=== PATIENT | female | born 1990 | race Caucasian/White ===

== ENCOUNTER 2017-09-30 14:19 | Emergency (ER) | payer BC ==
[2017-09-30] MEDS ORDERED: DEPO-PROVER150 MG/M2 (14:44)
[2017-09-30] MEDS ORDERED: DEPAKOTE ER 25250 MG PO (14:44)
[2017-09-30] MEDS ORDERED: TOPAMAX50 M1 (14:44)
[2017-09-30] MEDS ORDERED: PROBIOTIC1 EAC1 (14:45)
[2017-09-30] MEDS ORDERED: CYMBALTA20 MG (14:45)
[2017-09-30] MEDS ORDERED: MELOXICAM15 MG (14:45)
[2017-09-30 15:48] LABS: BASO # 0.1 (0.02-0.10); EOS # 0.1 (0.04-0.40); EOS % 1.2 % (1.0-5.0); HEMATOCRIT 40.8 % (37.0-47.0); HEMOGLOBIN 14.2 g/dL (12.5-16.0); LYMPH# 2.3 (1.50-4.00); MEAN CELL VOLUME 90 fl (78-100); MEAN CORPUSCULAR HEMOGLOBIN 31 pg (27-31); MEAN CORPUSCULAR HGB CONC 35 g/dL (33-37); MEAN PLATELET VOLUME 9.9 fl (7.4-10.4); MONO # 0.8 (0.20-0.80); NEU # 3.4 (1.40-6.50); PLATELET COUNT 275 K/mm3 (130-400); RED BLOOD COUNT 4.52 M/mm3 (4.10-5.30); RED CELL DISTRIBUTION WIDTH 11.7 % (11.5-14.5); WHITE BLOOD COUNT 6.6 K/mm3 (4.8-10.8)
[2017-09-30 16:08] LABS: PH-URINE 6.5 (5.0 - 8.0); URINE APPEARANCE HAZY; URINE BILIRUBIN NEGATIVE (NEGATIVE); URINE BLOOD 50 ery/uL (NEGATIVE); URINE COLOR YELLOW; URINE GLUCOSE NEGATIVE (NEGATIVE); URINE KETONE NEGATIVE (NEGATIVE); URINE LEUKOCYTE ESTERASE 1+ (NEGATIVE); URINE MUCUS PRESENT (NOT PRESENT); URINE NITRATE NEGATIVE (NEGATIVE); URINE PROTEIN(semi-quant) TRACE mg/dL (NEGATIVE); URINE UROBILINOGEN NORMAL (NORMAL)
[2017-09-30] MEDS ORDERED: NORCO 325 MG-51 TA1 PO (18:14)
[2017-09-30] MEDS ORDERED: MACROBID 100 M100 MG PO (18:17)
[2017-09-30 18:28] VITALS: BP 120/65
== END 2017-09-30 18:36 | disposition home or self-care (01) ==
LOC: ED 14:19
PROVIDERS: Family Medicine
DX: N93.8 Other specified abnormal uterine and vaginal bleeding (principal); N39.0 Urinary tract infection, site not specified; R10.2 Pelvic and perineal pain; M79.7 Fibromyalgia; Z87.42 Personal history of other diseases of the female genital tract; G40.909 Epilepsy, unspecified, not intractable, without status epilepticus
CPT/HCPCS: J1885

== ENCOUNTER 2019-02-13 21:17 | Emergency (ER) | payer BC ==
[~2019-02-13] VITALS: Ht 162.6 cm; Wt 52.3 kg
[~2019-02-13 21:17] MED LIST: CYMBALTA20 MG; DEPAKOTE ER 25250 MG PO; DEPO-PROVER150 MG/M2; MACROBID 100 M100 MG PO; MELOXICAM15 MG; NORCO 325 MG-51 TA1 PO; PROBIOTIC1 EAC1; TOPAMAX50 M1
[2019-02-13 21:50] LABS: BASO # 0.1 (0.02-0.10); EOS # 0.2 (0.04-0.40); EOS % 3.5 % (1.0-5.0); HEMATOCRIT 37.8 % (37.0-47.0); HEMOGLOBIN 12.5 g/dL (12.5-16.0); LYMPH# 2.4 (1.50-4.00); MEAN CELL VOLUME 92 fl (78-100); MEAN CORPUSCULAR HEMOGLOBIN 31 pg (27-31); MEAN CORPUSCULAR HGB CONC 33 g/dL (33-37); MEAN PLATELET VOLUME 9.7 fl (7.4-10.4); MONO # 0.5 (0.20-0.80); PLATELET COUNT 231 K/mm3 (130-400); RED CELL DISTRIBUTION WIDTH 12.5 % (11.5-14.5); WHITE BLOOD COUNT 5.1 K/mm3 (4.8-10.8)
[2019-02-13 22:09] LABS: ALBUMIN 3.7 g/dL (3.5-5.0); CALCIUM 9.2 mg/dL (8.4-10.2); POTASSIUM 3.2 mmol/L (3.5-5.1); TOTAL BILIRUBIN 0.3 mg/dL (0.2-1.2)
[2019-02-13] MEDS ORDERED: ZONISAMIDE100 MG PO (22:09)
[2019-02-13] MEDS ORDERED: KEPPRA 500MG500 MG PO (22:10)
[2019-02-13] MEDS ORDERED: KLONOPIN 1MG1 MG PO (22:11)
[2019-02-13] MEDS ORDERED: ZOVIRAX400 M1 PO (22:12)
[2019-02-13 22:59] LABS: ACETAMINOPHEN 2 ug/mL
[2019-02-14 01:05] VITALS: BP 92/56
== END 2019-02-14 01:05 | disposition short-term general hospital (02) ==
LOC: ED 21:17
PROVIDERS: Nurse Practitioner Family
DX: G40.209 Localization-related (focal) (partial) symptomatic epilepsy and epileptic syndromes with complex partial seizures, not intractable, without status epilepticus (principal); E87.6 Hypokalemia; G43.909 Migraine, unspecified, not intractable, without status migrainosus; F41.9 Anxiety disorder, unspecified; M79.7 Fibromyalgia; F17.210 Nicotine dependence, cigarettes, uncomplicated; Z87.39 Personal history of other diseases of the musculoskeletal system and connective tissue
CPT/HCPCS: J1885; J2060; J3480; J7030

== ENCOUNTER 2020-01-01 13:30 | Outpatient (RCR) | payer MEDICAID ==
[~2020-01-01 13:30] MED LIST changes: +KEPPRA 500MG500 MG PO; +KLONOPIN 1MG1 MG PO; +ZONISAMIDE100 MG PO; +ZOVIRAX400 M1 PO
== END 2020-01-01 14:00 | disposition still patient (30) ==
LOC: PT 13:30
DX: M75.42 Impingement syndrome of left shoulder (principal); Z98.890 Other specified postprocedural states

== ENCOUNTER 2020-10-14 01:07 | Emergency (ER) | payer MEDICAID ==
[2020-10-14] MEDS ORDERED: ULTRAM50 M1 PO (01:20)
[2020-10-14] MEDS ORDERED: PRENATA1 CTB PO (01:20)
[2020-10-14] MEDS ORDERED: AMBIEN10 MG PO (01:20)
[2020-10-14 02:03] LABS: EOS # 0.1 (0.04-0.40); HEMATOCRIT 35.2 % (37.0-47.0); HEMOGLOBIN 11.7 g/dL (12.5-16.0); LYMPH# 1.8 (1.50-4.00); MEAN CELL VOLUME 91 fl (78-100); MEAN CORPUSCULAR HEMOGLOBIN 30 pg (27-31); MEAN CORPUSCULAR HGB CONC 33 g/dL (33-37); MONO # 0.9 (0.20-0.80); NEU # 6.4 (1.40-6.50); PLATELET COUNT 228 K/mm3 (130-400); RED BLOOD COUNT 3.88 M/mm3 (4.10-5.30); RED CELL DISTRIBUTION WIDTH 12.8 % (11.5-14.5); WHITE BLOOD COUNT 9.2 K/mm3 (4.8-10.8)
[2020-10-14 02:04] LABS: ALBUMIN 3.1 g/dL (3.5-5.0); POTASSIUM 3.4 mmol/L (3.5-5.1)
[2020-10-14 02:10] LABS: CALCIUM 8.4 mg/dL (8.3-10.5); TOTAL BILIRUBIN 0.2 mg/dL (0.2-1.2); TOTAL PROTEIN 5.4 g/dL (6.4-8.3)
[2020-10-14 02:20] LABS: URINE APPEARANCE HAZY; URINE BILIRUBIN NEGATIVE (NEGATIVE); URINE BLOOD 50 ery/uL (NEGATIVE); URINE COLOR YELLOW; URINE GLUCOSE NEGATIVE (NEGATIVE); URINE KETONE NEGATIVE (NEGATIVE); URINE LEUKOCYTE ESTERASE NEGATIVE (NEGATIVE); URINE NITRATE NEGATIVE (NEGATIVE); URINE PROTEIN(semi-quant) NEGATIVE (NEGATIVE); URINE UROBILINOGEN NORMAL (NORMAL)
[2020-10-14 02:21] LABS: URINE MUCUS PRESENT (NOT PRESENT)
[2020-10-14 03:14] VITALS: BP 86/61
== END 2020-10-14 03:14 | disposition home or self-care (01) ==
LOC: ED 01:07
PROVIDERS: Family Medicine
DX: G40.909 Epilepsy, unspecified, not intractable, without status epilepticus (principal)

== ENCOUNTER 2020-10-26 19:46 | Emergency (ER) | payer MEDICAID ==
[~2020-10-26 19:46] MED LIST changes: +AMBIEN10 MG PO; +PRENATA1 CTB PO; +ULTRAM50 M1 PO
[2020-10-26 20:39] LABS: EOS # 0.1 (0.04-0.40); EOS % 0.9 % (1.0-5.0); HEMATOCRIT 38.2 % (37.0-47.0); HEMOGLOBIN 12.8 g/dL (12.5-16.0); LYMPH# 2.5 (1.50-4.00); MEAN CELL VOLUME 92 fl (78-100); MEAN CORPUSCULAR HEMOGLOBIN 31 pg (27-31); MEAN CORPUSCULAR HGB CONC 34 g/dL (33-37); MEAN PLATELET VOLUME 9.8 fl (7.4-10.4); MONO # 0.7 (0.20-0.80); NEU # 6.8 (1.40-6.50); PLATELET COUNT 262 K/mm3 (130-400); RED BLOOD COUNT 4.16 M/mm3 (4.10-5.30); RED CELL DISTRIBUTION WIDTH 12.8 % (11.5-14.5); WHITE BLOOD COUNT 10.2 K/mm3 (4.8-10.8)
[2020-10-26 20:45] LABS: URINE APPEARANCE CLEAR; URINE COLOR YELLOW
[2020-10-26 20:46] LABS: URINE BILIRUBIN NEGATIVE (NEGATIVE); URINE BLOOD TRACE (NEGATIVE); URINE GLUCOSE NEGATIVE (NEGATIVE); URINE KETONE 1+ (NEGATIVE); URINE LEUKOCYTE ESTERASE NEGATIVE (NEGATIVE); URINE MUCUS PRESENT (NOT PRESENT); URINE NITRATE NEGATIVE (NEGATIVE); URINE PROTEIN(semi-quant) TRACE mg/dL (NEGATIVE); URINE UROBILINOGEN NORMAL (NORMAL)
[2020-10-26 20:49] LABS: ALBUMIN 3.5 g/dL (3.5-5.0); POTASSIUM 3.5 mmol/L (3.5-5.1)
[2020-10-26 20:50] LABS: CALCIUM 8.4 mg/dL (8.3-10.5)
[2020-10-26 20:52] LABS: TOTAL PROTEIN 6.5 g/dL (6.4-8.3)
[2020-10-26 20:53] LABS: TOTAL BILIRUBIN 0.3 mg/dL (0.2-1.2)
[2020-10-26 22:02] LABS: CLUE CELLS NOT OBSERVED (Not Observd)
[2020-10-26 22:24] VITALS: BP 94/65
== END 2020-10-26 22:24 | disposition home or self-care (01) ==
LOC: ED 19:46
PROVIDERS: Nurse Practitioner Family
DX: O23.42 Unspecified infection of urinary tract in pregnancy, second trimester (principal); O99.891 Other specified diseases and conditions complicating pregnancy; G40.909 Epilepsy, unspecified, not intractable, without status epilepticus; F32.9 Major depressive disorder, single episode, unspecified; R30.0 Dysuria; R10.2 Pelvic and perineal pain; F17.210 Nicotine dependence, cigarettes, uncomplicated; Z3A.21 21 weeks gestation of pregnancy
CPT/HCPCS: J7030; Q0111

== ENCOUNTER 2022-02-19 21:39 | Emergency (ER) | payer MEDICAID ==
[~2022-02-19] VITALS: Ht 157.5 cm; Wt 45.5 kg
[2022-02-19 23:37] VITALS: BP 104/70
== END 2022-02-19 23:43 | disposition home or self-care (01) ==
LOC: ED 21:39
DX: G89.29 Other chronic pain (principal); Z28.310 Unvaccinated for COVID-19